=== PATIENT | male | born 1960 | race Caucasian/White ===

== ENCOUNTER 2024-06-17 18:01 | Inpatient (IN) | payer MEDICARE, SELFPAY ==
[2024-06-17] VITALS (13 sets, daily range): BP systolic 120–157; BP diastolic 67–96; BMI 29.5
--- NOTE | 2024-06-17 15:07 | ED.GENMED ---
History of Present Illness
General
Chief Complaint: Chest Pain
Source: patient
Time Seen by Provider: 06/17/24 15:07
History of Present Illness
History of Present Illness:
This 64-year-old male with a long history of coronary disease and tobacco abuse who reports chest pain. Came on suddenly just prior to arrival. The patient states he was really just at rest when this came on. The patient does admit that he is not
fully compliant with some of his medications. He does continue to smoke. Chest pain is substernal and severe. STEMI noted on triage EKG
Past History
Past History
ED Past Medical History: CAD, HTN, Hypercholesterolemia and GA
ED Past Surgical History: Cardiac (Coronary bypass)
Social History
Tobacco: Smoker
Phy Exam
Physical Exam
Physical Exam:
CONSTITUTIONAL Patient alert and oriented to person, place and time. Severe pain distress. Vital signs reviewed.
HEAD atraumatic, normocephalic.
EYES eyelids normal to inspection, Extraocular muscles intact, Conjunctiva normal, Sclera normal.
NECK normal range of motion, Trachea midline, no jugular venous distention.
RESPIRATORY CHEST No respiratory distress noted, Chest expansion equal, Bilateral breath sounds clear.
CARDIOVASCULAR regular rate and rhythm, Heart sounds normal.
ABDOMEN abdomen nontender, Bowel sounds normal. No distention.
BACK normal inspection, no obvious deformities
UPPER EXTREMITY range of motion normal, Motor strength normal, no cyanosis, no edema.
LOWER EXTREMITY range of motion normal, Motor strength normal, no cyanosis, no edema.
NEURO Speech normal, No focal motor deficits, Vernon coma scale 15, Memory normal, Cranial Nerves intact to screening exam.
SKIN skin warm, dry, and normal in color.
Scores
Heart Score for Chest Pain Patients
STEMI patient?: Yes
Course
Orders/Labs/Results
Orders:
Orders
06/17/24 14:45
ECG [Electrocardiogram (*1)] Urgent
Reason for Study: Chest Pain
06/17/24 14:46
EKG- Treatment ONCE
06/17/24 14:56
Morphine Sulfate 4 mg .ROUTE .STK-MED ONE
06/17/24 14:59
Morphine Sulfate 4 mg IV NOW STA
06/17/24 15:00
Type And Crossmatch [Type+Screen] Urgent
Cholesterol Lowering
At Your Request: Full Participation
Cholesterol Lowering: Sodium, 2 Gram
Complete Blood Count/With Diff Urgent
Comprehensive Metabolic Panel Urgent
Protime/PTT Urgent
Troponin I Urgent
06/17/24 15:20
Aspirin Chewable [Low Strength Aspirin] 324 mg .ROUTE .STK-MED ONE
Heparin 5,000 units .ROUTE .STK-MED ONE
Ticagrelor [Brilinta] 180 mg .ROUTE .STK-MED ONE
06/17/24 15:48
Admit Patient As Directed
Co-Sign Provider:
Level of Care: Inpatient admission
Assign to:: IVU
Physician / Group: KENDRICK/Cortez
Diagnosis: STEMI
Reason for Hospitalization: STEMI, VG-RCA PCI
Expected length of stay greater than two midnights?: Yes
ELOS- Estimated Length of Stay in days: 2
I certify the patient meets the requirements for IP care: Yes
Electrocardiogram (*1) Urgent
Reason for Study: Other
Other Reason for Exam: s/p intervention
Comment: kendrick
Code Status As Directed
Resuscitation Status: Full Code
CARDIAC REHAB CONSULT Routine
Co-Sign Provider:
Type of Cardiac Rehab Referral: Outpatient
Diagnosis: STEMI
Date of Diagnosis/Surgery: 06/17/24
Referring Provider: Lorne Toro
Acetaminophen [Tylenol] 650 mg PO Q4HPRN PRN
Morphine Sulfate 2 mg IV Q1HPRN PRN
Activity As Directed
Activity Level: Bedrest
Comment: refer to hemostasis device used for bedrest duration, then ambulate ad samantha
Business Systems Technician Procedure As Directed
Cardiac Cath Procedure: percutaneous coronary intervention
Head of Bed-Restrictions As Directed
Comment: may elevate head of bed 30 degrees
Intake/ Output As Directed
Frequency: Per unit guidelines
Notify MD As Directed
Notify physician if: immediately for chest pain or bleeding from access site(s)
Site Checks As Directed
Check access site for bleeding/hematoma: Yes
Comment: on arrival, Q15min x4, Q30min x2, Q1 hr x2, Q2 hr x2, Q4 hr or per
protocol
Vascular Checks As Directed
Location: distal to access site - pulse check
Frequency: Other
Comment: on arrival, Q15min x4, Q30min x2, Q1 hr x2, Q2 hr x2, Q4 hr or per protocol
Vital Signs As Directed
Frequency: Other
Additional Instructions:: on arrival, Q15min x4, Q30min x2, Q1 hr x2, Q2 hr x2, then Q4 hr or per unit
protocol
PRN Pain Medication Management As Directed
May give lesser potent ordered pain med per pt: Yes
preference::
Protocol:: Medication orders for pain may be administered in a
manner that supports deferring to patient preference
when the pt is:
- Requesting an ordered lesser potent pain medication.
Least to most potent pain medications are defined
as: acetaminophen < NSAID < tramadol < opioids
(morphine, oxycodone, hydromorphone).
- Requesting a lesser dose of the same medication IF
ORDERED.
- Requesting a less intrusive route of administration
if both routes are prescribed by the provider (PO <
IV).
DX Deep Vein Thrombosis Video Routine
06/17/24 16:00
0.9% Sodium Chloride 1000 ml [Nss] 1,000 ml IV PER PROTOCOL
Infusion rate in mL/kg/hr:: 1.5
Infusion rate in mL/hr:: 135
Duration of infusion (hours):: 5
0.9% Sodium Chloride 1000 ml [Nss] 1,000 ml IV PER PROTOCOL
Infusion rate in mL/kg/hr:: 1.5
Infusion rate in mL/hr:: 135
Duration of infusion (hours):: 5
06/17/24 16:02
Acetaminophen [Tylenol] 650 mg PO Q4HPRN PRN
Morphine Sulfate 2 mg IV Q1HPRN PRN
06/17/24 16:09
HYDROmorphone [Dilaudid] 1 mg .ROUTE .STK-MED ONE
06/17/24 16:51
Case Management Consult ONCE
Case Management Consult: Other
Comment: brilinta cost
06/17/24 17:25
Femoral Artery Hemostasis Method As Directed
Procedure performed:: Percutaneous Coronary Int
Type of femoral hemostasis method used:: Internal Closure Device
Duration of bedrest (hours):: 3
Call provider if:: hematoma present after hemostasis achieved
06/17/24 17:29
Furosemide [Lasix] 40 mg .ROUTE .STK-MED ONE
06/17/24 17:30
Nitroglycerin 100 mg/250 ml [Nitroglycerin Premix] 100 mg in 250 ml IV PER PROTOCOL
Currently infusing. Continue current dose and titrate:: Yes
Titrate to keep:: SBP < 160 mmHg
Titrate to keep other:: chest pain free
Titrate by mcg/min:: 5 mcg/min, may increase by 10 mcg/min if dose > 20 mcg/min
Frequency of titrations (minutes):: every 3-5 minutes
Maximum dose in mcg/min:: 200
Begin to taper infusion when:: Remained at goal for 2hrs
Taper by mcg/min:: 5 mcg/min
Frequency of taper (minutes) if patient maintains goal:: 30
Taper to off?: Yes
If infusion off & no longer maintaining goal:: Contact Provider
06/17/24 18:00
Atorvastatin [Lipitor] 80 mg PO QPM
Atorvastatin [Lipitor] 80 mg PO QPM
Nicotine [Nicoderm Transdermal] 21 mg TRANSDERM DAILY
06/17/24 18:30
Heparin 16352 Units/250 ml 25,000 units in 250 ml IV PER PROTOCOL
Weight to be used for heparin protocol in kilograms (kg):: 90.7
Protocol:: Cardiac Tx/Acute Coronary
PTT Goal Range to be used:: PTT 73 to 111 seconds
Order type:: Initial
INITIAL Infusion Dose (UNITS/KG/hr) & then follow protocol:: 15 units/kg/hr
Infusion Dose in UNITS/hr & then follow protocol (UNITS/hr):: 1,350
INFUSION RATE in mL/hr & then follow protocol (mL/hr):: 13.5
PTT less than or equal to 64 seconds:: Increase rate by 200 units/hr (+ 2 mL/hr)
PTT 64.1 to 72.9 seconds:: Increase rate by 100 units/hr (+ 1 mL/hr)
PTT 73 to 111 seconds:: Target Range. No change in rate.
PTT 111.1 to 130.9 seconds:: Decrease rate by 100 units/hr (- 1 mL/hr)
PTT 131 to 199.9 seconds:: HOLD for 1 hr. Then decrease rate by 200 units/hr (- 2 mL/hr)
PTT greater than or equal to 200 seconds:: HOLD for 2 hrs & Notify Provider. Then decrease by 200 units/hr (-
2 mL/hr)
Lab follow-up:: Each change, PTT q6h until 2 consecutive are therapeutic. Then PTT
daily.
06/17/24 21:04
ABO2 Urgent
BBK Wristband Number:
Associate notified that ABO2 has been ordered: [id number]
Date: 06/17/24
Time: 15:08
Pediatric Oncology Nurse ID: [id number]
Troponin I Q6H
06/18/24 04:14
Basic Metabolic Panel IN AM
Cardiovascular Evaluation IN AM
Magnesium IN AM
06/18/24 04:15
Complete Blood Count/No Diff IN AM
Glycohemoglobin (HgbA1c) IN AM
Troponin I Q6H
06/18/24 06:00
Echo 2D MMode Color/Doppler IN AM
Reason for Study: STEMI
Comment: toro
Electrocardiogram (*1) IN AM
Reason for Study: Other
Other Reason for Exam: s/p intervention
Comment: cbc
06/18/24 08:00
Aspirin Chewable [Low Strength Aspirin] 81 mg PO DAILY
Aspirin Chewable [Low Strength Aspirin] 81 mg PO DAILY
Metoprolol Xl [Toprol Xl] 12.5 mg PO DAILY
Ticagrelor [Brilinta] 90 mg PO BID
Ticagrelor [Brilinta] 90 mg PO BID
06/18/24 08:37
Troponin I Q6H
06/18/24 18:00
Enoxaparin Sodium [Lovenox] 40 mg SC QPM
Enoxaparin Sodium [Lovenox] 40 mg SC QPM
06/19/24 02:49
Basic Metabolic Panel IN AM
Complete Blood Count/No Diff IN AM
06/19/24 06:00
Electrocardiogram (*1) IN AM
Reason for Study: Other
Other Reason for Exam: s/p intervention
Comment: cbc
Abnormal Lab Results
06/17/24 06/17/24 06/17/24
15:00 15:35 15:50
WBC 18.4 H 10^3/uL
(4.8-10.8)
Hgb 18.6 H g/dL
(13.0-18.0)
Hct 55.3 H %
(39.0-52.0)
Abs Immat Gran (auto) 0.1 H 10^3/uL
(0-0.05)
Absolute Neuts (auto) 15.8 H 10^3/uL
(1.4-6.5)
Absolute Monos (auto) 0.8 H 10^3/uL
(0.1-0.6)
Neutrophils % 85.8 H %
(42.2-75.2)
Lymphocytes % 7.9 L %
(20.5-51.1)
BUN 21 H mg/dl
(9-20)
Glucose 138 H mg/dl
(70-99)
Troponin I 0.099 H* ng/ml
POC ACT Low Range 268 H Seconds > 397 H Seconds
(116155) ([id number])
06/17/24 06/17/24
16:15 16:47
WBC
Hgb
Hct
Abs Immat Gran (auto)
Absolute Neuts (auto)
Absolute Monos (auto)
Neutrophils %
Lymphocytes %
BUN
Glucose
Troponin I
POC ACT Low Range 377 H Seconds > 397 H Seconds
(116155) (116155)
06/17/24 15:00
06/17/24 15:00
Vital Signs
Initial and Last Documented VS:
Initial Vital Signs
Pulse Pulse Ox
90 93
06/17/24 18:00 06/17/24 18:00
Last Documented Vital Signs
Temp Pulse Resp BP Pulse Ox
97.5 F 73 18 124/84 97
06/19/24 11:29 06/19/24 12:00 06/19/24 11:29 06/19/24 11:30 06/19/24 11:29
MDM/Problems Addressed
MDM/Problems Addressed:
Acute ST elevation GA, acute uncontrolled hypertension
*Pulse Oximetry
Patient hypoxic: no
*EKG
Interpreted by ED Provider?: Yes
Interpretation: abnormal
Rate: normal
Rhythm: sinus
Ischemia: ST elevation
*Gravity Meter Operator Interpretation
Rate: normal
Interpretation: normal
Rhythm: sinus
*Critical Care Note
Total Time (30-74mins, 75-104mins- exclusive of procedures): 35 minutes
Data Reviewed
Source: patient
Further Testing Considered But Not Given:
Considered urgent chest x-ray with patient taken to cardiac catheterization lab
Patient Management
Discussion with other providers: Sulphate Tester (Case discussed with Dr. Lerner interventional cardiology)
Escalation/DeEscalation of care consider admission/obs:
Acute STEMI. 64-year-old male with known CAD. Admits to be noncompliant with meds and continues to smoke. Emergently to cardiac catheterization lab
ED Attending Note
-
Portions of this chart may have been created with voice recognition software.� Occasional wrong word or��sound alike� substitutions may have occurred due to the inherent limitations of voice recognition software.
Discharge Plan
Departure
Patient Disposition: Admit
Date of Disposition: 06/17/24
Time of Disposition: 15:07
Admit to: cleaning laborer
Presentation/result/management discussed w/ accepting MD/DO: Cortez
Discharge Problem:
STEMI (ST elevation myocardial infarction)
Interventions
Interventions:
*Nursing Disposition Last Done: 06/17/24 15:24
Discharge Date and Time
Discharge Date/Time: 06/17/24 15:24
[2024-06-17 15:12] LABS: % Basophils 0.4 % (0-2); % Eosinophils 0.8 % (0-6); % Immature Granulocytes 0.5 % (0-0.5); % Lymphocytes 7.9 % (20.5-51.1); % Monocytes 4.6 % (1.7-9.3); % Neutrophils 85.8 % (42.2-75.2); Absolute Basophils 0.1 10^3/uL (0-0.2); Absolute Eosinophils 0.1 10^3/uL (0-0.7); Absolute Immature Granulocytes 0.1 10^3/uL (0-0.05); Absolute Lymphocytes 1.5 10^3/uL (1.2-3.4); Absolute Monocytes 0.8 10^3/uL (0.1-0.6); Absolute Neutrophils 15.8 10^3/uL (1.4-6.5); Hematocrit 55.3 % (39.0-52.0); Hemoglobin 18.6 g/dL (13.0-18.0); Mean Corp Hgb Conc. 33.6 g/dL (33.0-37.0); Mean Corpuscular Hgb 30.6 pg (27.0-31.0); Mean Platelet Volume 10.1 fL (7.4-10.4); Nucleated Red Blood Cells % 0 % (-); Platelet Count 254 10^3/uL (130-400); Red Blood Cell Count 6.08 10^6/uL (4.70-6.10); Red Cell Dist. Width 13.4 % (11.5-14.5); White Blood Cell Count 18.4 10^3/uL (4.8-10.8)
--- NOTE | 2024-06-17 15:19 | HPS.HSE ---
Addendum entered and electronically signed by SRINIVASA Khan 06/18/24 08:30:
Pt not taking any medications, intermittent aspirin use only.
Original Note:
Family Physician
-
Family Physician: None
Chief Complaint
-
chest pain
History of Present Illness
64 y/o white male, PMH sig for CABG x4 (2011 @[facility]), NSTEMI 07/20/2023 with possibly 3 stents placed (one in the [facility] LC[facility], unclear if it was done at [facility]?), FH CAD, +35pyh tobacco abuse and continues to smoke 5-6
cig/daily, denies ETOH, denies any allergies. Currently employed, lives with girlfriend, Isabel. He is non compliant with medications, states he takes only aspirin daily, and has not followed up with any doctors since his [place].
New onset acute SSCP 10/10 starting approx 1 hour prior to arrival. Drove himself to ER, initial EKG with inferior ST elevations with deep anterolateral downsloping TWI. Given 180mg ticagrelor, aspirin 3234mg, and heparin 5000u, as well as 4mg MSO4.
Currently pain is 5/10, states it is similar to CP from NSTEMI last year. BP elevated on arrival 169/85, currently 187/95. Initial Trop 0.09. Glucose 138. Brought emergently to laborer/grade check.
IMPRESSION:
Acute Inferior STEMI
CAD, prior CABG x 4 (2011)
DEL CASTILLO-LAD, VG-RCA, Seq [id number]
NSTEMI (07/20/2023)
patent DEL CASTILLO-LAD and VG-RCA, occluded VM-OM1, s/p PCI w/3 CHINTAN to [facility] LCx (at [facility])
Non compliant with medications/followup
Tobacco abuse
HTN
Elevated glucose
PLAN:
CAD/STEMI
Emergent LHC
Plan pending cath results
DAPT w/asa, ticagrelor- CM to check cost
Trend troponin to peak
Monitor on tele/IVU
New start BB, ACEI
check lipid profile in am and start high intensity statin therapy
echo in AM
cardiac rehab
Followup at [facility]
HTN- new start BB, ACEI post cath
continue nitro gtt for now for BP/CP management
monitor trends
Elevated glucose- check HgbA1C in AM
Tobacco abuse- must stop, cessation discussed
nicoderm patch
Medical History
Past Medical History
Past Medical History: Reports CAD (NSTEMI 07/20/23), HTN and Hypercholesterolemia
Past Surgical History: Reports Cardiac (CABG x4 (2012))
Social History
Tobacco: Smoker (35pyh, still smokes 5-6 cigarettes/daily)
Alcohol: None
Drug: None
Personal: Single
Living: With Roomate (girlfriend)
Employment: Employed
Family History
Family History: CAD (Father- also CVA)
Allergies / Home Medications
Allergies reflects when Allergies were last updated in [employer].
Home Medications with original date entered in [employer]
Allergy/Medication List:
Allergies
Allergy/AdvReac Type Severity Reaction Status Date / Time
No Known Allergies Allergy Verified 06/17/24 14:52
Review of Systems
-
History Source: Patient
A 12 point ROS was completed and negative except as noted: Yes
Cardiac: Reports Chest Pain (5/10 mid sternal chest pain)
Physical Exam
Vital Signs
172/99- 74 NSR- 13- 98% O2 2LNC
Physical Exam
General: Well Developed and Other (PE deferred d/t urgent nature of cath)
Laboratory Results
-
06/17/24 15:00
06/17/24 15:00
PT 13.0 Sec (11.4-14.6) 06/17/24 15:00
INR 0.95 06/17/24 15:00
APTT 28.0 Sec (23.4-35.0) 06/17/24 15:00
Data Reviewed
-
Medical Tests (Nuc Med, Echo, EKG etc): Image Personally Visualized and interpreted, Report Reviewed by me and Discussed with Physician
Lab Data: Labs Reviewed by me
Impression/Plan
-
64 y/o white male, PMH sig for CABG x4 (2011 @[facility]), NSTEMI 07/20/2023 with possibly 3 stents placed (one in the [facility] LCx, [facility] FH CAD, +35pyh tobacco abuse and continues to smoke 5-6
cig/daily, denies ETOH, denies any allergies. Currently employed, lives with girlfriend, Isabel. He is non compliant with medications, states he takes only aspirin daily, and has not followed up with any doctors since his [place].
New onset acute SSCP 10/10 starting approx 1 hour prior to arrival. Drove himself to ER, initial EKG with inferior ST elevations with deep anterolateral downsloping TWI. Given 180mg ticagrelor, aspirin 3234mg, and heparin 5000u, as well as 4mg MSO4.
Currently pain is 5/10, states it is similar to CP from NSTEMI last year. BP elevated on arrival 169/85, currently 187/95. Initial Trop 0.09. Glucose 138. Brought emergently to laborer/grade check.
IMPRESSION:
Acute Inferior STEMI
CAD, prior CABG x 4 (2011)
DEL CASTILLO-LAD, VG-RCA, Seq [id number]
NSTEMI (07/20/2023)
patent DEL CASTILLO-LAD and VG-RCA, occluded VM-OM1, s/p PCI w/3 CHINTAN to [facility]x (at [facility])
Non compliant with medications/followup
Tobacco abuse
HTN
Elevated glucose
PLAN:
CAD/STEMI
Emergent LHC
Plan pending cath results
DAPT w/asa, ticagrelor- CM to check cost
Trend troponin to peak
Monitor on tele/IVU
New start BB, ACEI
check lipid profile in am and start high intensity statin therapy
echo in AM
cardiac rehab
Followup at [facility]
HTN- new start BB, ACEI post cath
continue nitro gtt for now for BP/CP management
monitor trends
Elevated glucose- check HgbA1C in AM
Tobacco abuse- must stop, cessation discussed
nicoderm patch
[2024-06-17 15:20] LABS: INR 0.95
[2024-06-17 15:21] LABS: ALT (SGPT) 19 U/L (0-50); AST (SGOT) 23 U/L (17-59); Albumin 4.4 g/dl (3.5-5.0); Alkaline Phosphatase 70 U/L (38-126); Blood Urea Nitrogen 21 mg/dl (9-20); Calcium 9.2 mg/dl (8.4-10.2); Carbon Dioxide 27 mmol/L (22-30); Chloride 98 mmol/L (98-107); Glucose 138 mg/dl (70-99); Potassium 4.1 mmol/L (3.5-5.1); Sodium 135 mmol/L (135-145); Total Bilirubin 0.5 mg/dl (0.2-1.3); eGFR > 60.00
[2024-06-17 15:41] LABS: Troponin I 0.099 ng/ml
[2024-06-17 15:42] LABS: ACT-LR - POC 268 Seconds (116-155)
[2024-06-17 16:23] LABS: ACT-LR - POC 377 Seconds (116-155)
--- NOTE | 2024-06-17 17:40 | ITS.CL.ANGIO ---
Child Care Nurse - Angioplasty
Angioplasty
Procedure Report:
CARDIAC CATHETERIZATION REPORT
Date of Procedure: 06/17/2024
Referring: [facility] emergency room.
INDICATION: Inferior ST elevation myocardial infarction.
PROCEDURE:
1. Left heart catheterization.
2. Coronary angiography.
3. Bypass angiography.
4. Aspiration thrombectomy of the SVG to RCA.
5. Successful IVUS guided PCI of the distal SVG to RCA graft.
6. Successful PCI of the proximal and mid RPDA.
7. Successful IVUS guided PCI of the mid SVG to RCA graft.
8. Successful IVUS guided PCI to the proximal SVG to RCA graft.
A total of 135 minutes of procedural/moderate sedation was utilized. An independent medical secretary teacher was present to assist with and help manage the patient's level of consciousness and physiologic status.
ACCESS:
1. 6 [place] right common femoral artery using a modified Seldinger technique with a micropuncture kit under ultrasound guidance. Ultrasound image obtained.
CATHETERS:
1. 5 Mozambican JL 4.
2. 5 [place]ican JR4.
3. 5 [place]ican CRUZ.
4. 6 [place]ambican multipurpose guiding catheter.
HEMODYNAMIC DATA
Weight (kg): 90.7
AO (s/d/x, mmHg): 175/100/133
LV (s/x mmHg): 177/26 (A wave to 44 mmHg)
LEFT VENTRICULOGRAPHY: Not performed.
CORONARY ANGIOGRAPHY
Dominance: Right.
Left Main: Normal size, bifurcating vessel. There is no coronary artery disease.
LAD: Normal size vessel giving rise to 1 significant diagonal. The vessel is chronically totally occluded in its midportion immediately after the origin of the diagonal. The mid and distal LAD is supplied by patent DEL CASTILLO graft.
Ramus: Congenitally absent.
Circumflex: Normal size, nondominant vessel giving rise to 2 obtuse marginals and a left posterolateral branch. The vessel is acutely angled off of the left main. There is a 30% lesion in the proximal vessel. The mid circumflex is chronically
totally occluded immediately after the origin of OM1. The LPDA and OM 2 fill via left to left epicardial collateral from the distal OM1.
RCA: Normal size, dominant vessel. The vessel is chronically totally occluded at its origin. The distal RCA is supplied by a saphenous vein graft. There is a hazy, 70% lesion in the distal RCA leading into the origin of the RPDA. There are
tandem 80-90% lesions in the mid RPDA.
BYPASS GRAFT ANGIOGRAPHY
DEL CASTILLO to LAD: Normal size graft with end-to-side anastomosis to the mid LAD. There is no evidence of stenosis or graft degeneration.
LRA to OM1: Chronically totally occluded at its origin.
SVG to D1: Chronically totally occluded at its origin.
SVG to RCA: Acutely occluded in its proximal margin, though the culprit lesion appears to be a 90% distal SVG lesion, immediately proximal to the anastomosis with the distal RCA. There is a hazy lesion in the proximal margin. There is a
thrombotic, 70% lesion in the mid graft.
INTERVENTION(S)
1. Aspiration thrombectomy of the SVG to distal RCA with removal of considerable clot burden, though leading to embolization of thrombus into the RPDA.
2. Successful PCI of the culprit, 90% distal SVG lesion (Xience Skypoint 3.5 x 28 CHINTAN, postdilated with a 4.0 NC balloon throughout and a 5.0 NC balloon in the proximal margin) with reduction in stenosis to 0%, restoring GEORGE-3 flow.
2. Successful PCI of the tandem 80-90% mid RPDA lesions (Xience Skypoint 2.25 x 38 CHINTAN, postdilated with a 2.25 NC balloon throughout) with reduction in both stenoses to 0%, maintaining GEORGE-3 flow.
3. Successful PCI of the hazy, 70% distal RCA into RPDA lesion (Xience Skypoint 2.5 x 18 CHINTAN, postdilated with a 2.5 NC balloon throughout and a 3.0 NC balloon in the proximal margin) with reduction in stenosis to 0%, maintaining GEORGE-3 flow.
4. Several rounds of intravascular ultrasound.
5. Successful PCI of the thrombotic, 70% mid graft lesion (Xience Skypoint 5.0 x 28 CHINTAN, postdilated with a 5.0 NC balloon) with reduction in stenosis to 0%, maintaining GEORGE-3 flow.
6. Successful PCI of the hazy, proximal graft lesion (Xience Skypoint 4.0 x 12 CHINTAN, postdilated with a 5.0 NC balloon) with reduction in stenosis to 0%, maintaining GEORGE-3 flow.
Narrative:
The decision was made to proceed with percutaneous coronary intervention. The patient required multiple doses of narcotics and a nitroglycerin drip to achieve adequate pain relief. The diagnostic catheter was removed over a wire and a 6Fr
multipurpose guiding catheter was advanced to the aortic root and seated in the ostium of the SVG to distal RCA. Additional heparin was given and a Power Turn Flex wire was advanced into the RPDA.
Given the extensive clot burden revealed after successful wire placement, the decision was made to perform aspiration thrombectomy. An AMISHA aspiration thrombectomy catheter was prepped on the back table and advanced over the power turn flex wire
and into the SVG graft. Aspiration was performed with movement throughout the entire SVG. The AMISHA catheter was withdrawn and its contents to flushed through the basket. This revealed a large piece of thrombus.
Repeat angiography was performed which showed some improvement in the SVG thrombus burden but embolization of thrombus into the RPDA which was now occluded.
The acutely occluded proximal RPDA as well as a thrombotic, 90% distal SVG graft lesion were predilated with a 2.0 x 12 semi-compliant balloon to 12 brionna. Again, this resulted in some improvement in the vein graft flow with persistent sluggish flow
in the RPDA. Given the thrombotic nature of the vein graft lesion, the decision was made to treat this lesion and to avoid further downstream thrombus.
The semi-compliant balloon was removed and a Xience Skypoint 3.5 x 28 drug-eluting stent was advanced into the thrombotic, 90% distal SVG lesion. The stent was deployed at 12 atmospheres. The stent balloon was removed. Subsequent angiography
revealed a significant improvement in the GEORGE flow throughout the RPDA as well as the large RPL. This also revealed tandem 80-90% lesions in the mid RPDA as well as a hazy, 70% lesion in the distal RCA leading into the RPDA. The decision was made
to post dilate the distal SVG stent, advance the GuideLiner and intervene on these RPDA lesions.
A 6 Mozambican guide liner and A 3.75 x 20 noncompliant balloon were advanced into the stent and the stent was postdilated to 12 atmospheres. After post dilation, the GuideLiner was advanced into the stented segment to allow for better visualization
with less contrast use and more support. The 3.75 x 20 noncompliant balloon was withdrawn. At this time, we attempted to protect the RPL by advancing a BMW wire. Unfortunately, the BMW wire would not track into the RPL but did enter the RPDA with
a true course, out into the distal vessel. Given the superior course of the BMW wire, the power turn flex wire was withdrawn, demonstrating severe malformation of the distal tip. This wire was discarded.
The tandem 80-90% mid RPDA lesions were predilated with a 2.0 x 12 semi-compliant balloon to 12 brionna. The semi-compliant balloon was removed and a Xience Skypoint 2.25 x 38 drug-eluting stent was advanced. The stent was deployed at 12 atmospheres.
The stent balloon was removed. A 2.25 x 12 noncompliant balloon was advanced into the stent and the stent was postdilated to 18 atmospheres.
The noncompliant balloon was removed and we turned our attention to the distal RCA leading into the RPDA. A Xience Skypoint 2.5 x 18 CHINTAN was advanced into the distal RCA/proximal RPDA. Meticulous care was taken while positioning the stent,
ensuring that the entire lesion was covered. The stent was deployed at 12 brionna. The stent balloon was withdrawn and a 2.5 x 12 NC balloon was advanced. The entire stent length was postdilated to 12 brionna. The NC balloon was removed and a 3.0 x 8 NC
balloon was advanced. The proximal margin of the stent was postdilated to 14 brionna. The noncompliant balloon was withdrawn.
Angiography showed an excellent result within the RPDA and distal RCA. Some haziness had formed along the inner stent edge of the distal SVG stent. The decision was made to perform intracoronary imaging. An IVUS catheter was advanced through the
guiding catheter and into the ostium of the artery. Ring down was performed once the imaging crystal was no longer inside of the guiding catheter. The IVUS catheter was advanced into the distal RCA, with some difficulty. Intravascular ultrasound was
performed in a retrograde fashion using a slow pullback. Intracoronary imaging demonstrated good stent expansion of the distal SVG stent with some mall apposition, particularly in the proximal margin where the SVG tends to flare. IVUS also revealed
the severity of the mid SVG and proximal SVG lesions, much worse than appreciated on angiography. This also demonstrated acute thrombus in both lesions. Stent measurements for intervention were obtained.
The decision was made to treat both proximal and mid SVG lesions. First, a 4.0 x 8 NC balloon was advanced. The entire distal SVG stent length was dilated to 12 brionna with the proximal margin being postdilated to 14 brionna. We then turned our
attention to the thrombotic, mid SVG graft lesion. A Xience Skypoint 5.0 x 28 drug-eluting stent was advanced. The stent was deployed at 12 atmospheres. The stent balloon was removed. A 5.0 x 15 noncompliant balloon was advanced. The balloon
passed into the distal SVG stent. We took this opportunity to post dilate the proximal margin of the distal SVG stent to 12 brionna. The balloon was then pulled back into the mid SVG stent and the entire length was postdilated to 12 brionna. Angiography
was performed in orthogonal views, confirming good stent expansion and an excellent angiographic result.
IVUS was repeated, demonstrating good expansion with complete apposition throughout the entire stented segments. This also allowed us to reevaluate the proximal SVG graft lesion again, confirming that it appeared thrombotic and active.
We then turned our attention to the proximal SVG to RCA graft lesion. The decision was made to direct stent and a 4.0 x 12 drug-eluting stent was advanced. The stent was deployed at 12 atmospheres. The stent balloon was removed. A 4.5 x 8
noncompliant balloon was advanced into the stent and the stent was postdilated to 14 atmospheres. Final IVUS was performed, demonstrating good stent expansion with some modest mall apposition on the margins. The decision was made to postdilated
more aggressively. A 5.0 x 12 NC balloon was advanced and the stented segment was postdilated to 12 brionna. The noncompliant balloon was removed.
Angiography was performed in orthogonal views, confirming good stent expansion and an excellent angiographic result. The coronary wire was withdrawn and the guide was disengaged from the artery. The catheter was removed over a standard J-wire. The
6 [place] femoral sheath was removed and hemostasis was obtained with a 6 Mozambican Angio-Seal. The patient was given furosemide 40 mg IV given his severely elevated filling pressures.
Closure Device: 6 [place] Angio-Seal.
Radiation (mGy): 3653.54
DAP (cm2.Gy): To 42.80
Fluoroscopy time (minutes): 36.0
CONCLUSIONS
1. Right dominant circulation with a chronically totally occluded mid LAD, a chronically totally occluded ostial RCA, status post bypass (patent DEL CASTILLO to LAD, occluded LRA to OM1, occluded SVG to D1, acutely thrombotic SVG to distal RCA) with
residual [place] distal RCA and RPDA disease.
2. Successful IVUS guided PCI to the mid RPDA (Xience Skypoint 2.25 x 38 CHINTAN, postdilated with 2.25 NC balloon), the distal RCA into RPDA (Xience felix point 2.5 x 18 CHINTAN, postdilated with a 2.5 NC balloon throughout and a 3.0 NC balloon in the
proximal margin), the distal SVG (Xience Skypoint 3.5 x 28 CHINTAN, postdilated with a 4.0 NC balloon throughout and a 5.0 NC balloon in the proximal margin), the mid SVG (Xience Skypoint 5.0 x 28 CHINTAN, postdilated with 5.0 NC balloon) and the proximal
SVG (4.0 x 12 CHINTAN, postdilated with a 5.0 NC balloon) with reduction in all stenoses to 0%, restoring GEORGE-3 flow.
3. Successful IVUS evaluation of the SVG stents, ensuring excellent stent expansion and apposition.
4. Severely elevated filling pressures (LVEDP = 26 mmHg at 90.7 kg) with evidence of severe diastolic dysfunction (A wave to 44 mmHg).
5. Medication noncompliance.
RECOMMENDATIONS:
1. Expectant management after cardiac catheterization via right common femoral approach.
2. Limited weight bearing for one week.
3. Dual antiplatelet therapy with aspirin and ticagrelor for at least 12 months, possibly lifelong given his stent burden.
4. Aggressive secondary prevention with high-dose, high potency statin. Goal LDL <55.
5. Guideline directed medical therapy as hemodynamics will tolerate.
6. Furosemide 40 mg IV given in the Child Care Nurse.
7. Echocardiogram ordered and pending.
8. Referral to cardiac rehab.
Copy to: Lorne Toro D.O.
Lorne Toro, DO, FACC, FACP
--- NOTE | 2024-06-17 18:31 | PTCARENOTE ---
received pt from label printer. pt is sr on the monitor, hr in the 80s, vss. pt c/o cp 10/12, 'better than what it was.' right groin dressing is cdi. pt educated on plan of care and pt verbalized understanding. nitro gtt running per protocol, see
documentation. call turcios within reach.
[2024-06-17] MEDS: HEPARIN 25000 UNITS/250 ML IV (19:18)
[2024-06-17] MEDS: LIPITOR 80 MG PO (19:22)
[2024-06-18] VITALS (13 sets, daily range): BP systolic 112–168; BP diastolic 73–98
--- NOTE | 2024-06-18 01:00 | PTCARENOTE ---
Pt c/o when falling asleep being jolted awake and feeling like he is gasping for breath. O2 2L NC placed on pt.
[2024-06-18 01:49] LABS: APTT 53.8 Sec (23.4-35.0)
--- NOTE | 2024-06-18 02:20 | PTCARENOTE ---
Pt had 10 beat run v-tach. Pt was asymptomatic. See strip in chart.
[2024-06-18 04:28] LABS: Hematocrit 53.1 % (39.0-52.0); Hemoglobin 18.6 g/dL (13.0-18.0); Mean Corpuscular Hgb 31.1 pg (27.0-31.0); Mean Corpuscular Volume 88.8 fL (80.0-94.0); Mean Platelet Volume 9.8 fL (7.4-10.4); Platelet Count 241 10^3/uL (130-400); Red Blood Cell Count 5.98 10^6/uL (4.70-6.10); Red Cell Dist. Width 13.4 % (11.5-14.5); White Blood Cell Count 17.3 10^3/uL (4.8-10.8)
[2024-06-18 04:52] LABS: Blood Urea Nitrogen 16 mg/dl (9-20); Calcium 8.6 mg/dl (8.4-10.2); Carbon Dioxide 28 mmol/L (22-30); Chloride 97 mmol/L (98-107); Estimated Creatinine Clearance 84 ml/min; Glucose 111 mg/dl (70-99); HDL Cholesterol 40 mg/dl; LDL Cholesterol, Calculated 141 mg/dl; Magnesium 1.7 mg/dl (1.6-2.3); Potassium 4.3 mmol/L (3.5-5.1); Sodium 135 mmol/L (135-145); Total Cholesterol 201 mg/dl (50-199); Triglyceride 104 mg/dl (10-149); Very Low Density Lipoprotein 20 mg/dl (0-30); eGFR > 60.00
[2024-06-18] MEDS: TUMS CHEWABLE TABLET 400 MG PO (07:42)
--- NOTE | 2024-06-18 07:56 | W.PN.CD ---
Today's Communication / Plan
-
Echocardiogram pending.
Maintain heparin gtt for 48 hours.
DAPT, possibly lifelong.
Change metoprolol to carvedilol 12.5 mg BID.
Impression / Plan
-
Impression/Plan: 64 y/o male with multiple medical co-morbidities including CAD s/p CABG in 2011, PCI to LCx on 07/20/2023 and medication non-compliance admitted with inferior STEMI.
#STEMI
-Acute.
-S/P multiple interventions to an acutely occluded SVG to RCA:
-Xience Skypoint 2.25 x 38 CHINTAN to mRPDA.
-Xience Skypoint 2.5 x 18 CHINTAN to dRCA/pRPDA, post dilated with a 2.5 NCB throughout, 3.0 NCB proximally.
-Xience Skypoint 3.5 x 28 CHINTAN to dSVG, post dilated with a 4.0 NCB throughout, 5.0 NCB proximally.
-Xience Skypoint 5.0 x 28 CHINTAN to mSVG, post dilated with a 5.0 NCB.
-Xience Skypoint 4.0 x 12 CHINTAN to pSVG, post dilated with a 5.0 NCB.
-DAPT with aspirin and ticagrelor for at least 12 months, likely lifelong given stent burden.
-Maintain heparin gtt for 48 hours given sub-acute haziness post PCI, in spite of aggressive post dilation.
-Continue atorvastatin, metoprolol.
-Echo pending. He received furosemide 40 mg IV for an LVEDP of 25 mmHg with diastolic dysfunction.
#CAD
-Chronic.
-Cath shows mLAD ELECTRIC REFRIGERATOR SERVICER, pRCA ELECTRIC REFRIGERATOR SERVICER, s/p prior CABG in 2011 (patent DEL CASTILLO to LAD, occluded LRA to OM1, occluded SVG to D1, acutely occluded SVG to dRCA).
-PCI as above.
-High dose, high potency statin.
-Check HbA1c.
#HLD
-Chronic, uncontrolled.
-Total cholesterol = 201, LDL = 141, HDL = 40, Triglycerides = 104.
-Start atorvastatin 80 mg daily.
-Goal LDL < 55.
#HTN
-BP's 140-150's.
-NSVT on monitor.
-Change metoprolol to carvedilol 12.5 mg BID for BP control and beta blockade.
#Medication non-compliance
-Chronic.
-I impressed upon him the importance of taking all of his medications as prescribed.
#PPx
-DVT/VTE ppx with heparin gtt.
-No role for PPI at the moment.
#Dispo
-IVU status.
-Full code.
Subjective/Interval History:
STEMI yesteday.
Extensive PCI of SVG to RCA and menominee RCA.
10 beat run of NSVT overnight.
DATA:
Cardiac Catheterization/PCI, 06/17/2023:
CONCLUSIONS
1. Right dominant circulation with a chronically totally occluded mid LAD, a chronically totally occluded ostial RCA, status post bypass (patent DEL CASTILLO to LAD, occluded LRA to OM1, occluded SVG to D1, acutely thrombotic SVG to distal RCA) with
residual [place] distal RCA and RPDA disease.
2. Successful IVUS guided PCI to the mid RPDA (Xience Skypoint 2.25 x 38 CHINTAN, postdilated with 2.25 NC balloon), the distal RCA into RPDA (Xience felix point 2.5 x 18 CHINTAN, postdilated with a 2.5 NC balloon throughout and a 3.0 NC balloon in the
proximal margin), the distal SVG (Xience Skypoint 3.5 x 28 CHINTAN, postdilated with a 4.0 NC balloon throughout and a 5.0 NC balloon in the proximal margin), the mid SVG (Xience Skypoint 5.0 x 28 CHINTAN, postdilated with 5.0 NC balloon) and the proximal
SVG (4.0 x 12 CHINTAN, postdilated with a 5.0 NC balloon) with reduction in all stenoses to 0%, restoring GEORGE-3 flow.
3. Successful IVUS evaluation of the SVG stents, ensuring excellent stent expansion and apposition.
4. Severely elevated filling pressures (LVEDP = 26 mmHg at 90.7 kg) with evidence of severe diastolic dysfunction (A wave to 44 mmHg).
5. Medication noncompliance.
Physical Exam
Vital Signs/Labs
Vital Signs
Temp Pulse Resp BP Pulse Ox
36.4 C 92 20 148/90 96
06/18/24 04:00 06/18/24 06:27 06/18/24 04:00 06/18/24 06:27 06/18/24 04:00
06/16/24 06/17/24 06/18/24
11:59 11:59 11:59
Actual Weight 90.7 kg
06/18/24 04:15
06/18/24 04:14
PT 13.0 Sec (11.4-14.6) 06/17/24 15:00
INR 0.95 06/17/24 15:00
APTT 53.8 Sec (23.4-35.0) H 06/18/24 01:29
Magnesium 1.7 mg/dl (1.6-2.3) 06/18/24 04:14
Triglycerides 104 mg/dl (10-149) 06/18/24 04:14
LDL Cholesterol, Calc 141 mg/dl 06/18/24 04:14
VLDL Cholesterol, Calc 20 mg/dl (0-30) 06/18/24 04:14
HDL Cholesterol 40 mg/dl 06/18/24 04:14
LAB Results
06/17/24 06/17/24 06/18/24
15:00 21:04 04:15
Troponin I 0.099 H* 11.400 H* D 27.600 H* D
Physical Exam
Constitutional: No acute distress and Comfortable
EENT: Anicteric and Moist mucous membranes
Cardiovascular: Rhythm & rate is regular, Pedal edema is absent, JVD pressure is normal, S1S2 is normal and Murmur/rub/gallop absent
Respiratory: Respiratory effort normal, Lungs clear to auscul., Wheeze Absent, Crackles Absent and Rhonchi Absent
GI: Soft, Distention absent, Flat, Non tender and Normal bowel sounds
Neuro/Psych: AO x 3
Other: Cath Site (Right femoral access site is C/D/I.)
Data Reviewed
-
Date of Service: June 18, 2024
Medical Decision Making: Reviewed Test Results, Independent Historian Assessment and Test Interpretation
EKG: Tracing Personally Visualized and interpreted and Report Reviewed by me
Echo: Ordered by me
Medical Tests (PFT, Pathology etc): Image Personally Visualized and interpreted and Report Reviewed by me
Labs: Labs Reviewed by me
[2024-06-18 08:15] LABS: ACT-LR - POC > 397 Seconds (116-155)
[2024-06-18 08:15] LABS: ACT-LR - POC > 397 Seconds (116-155)
[2024-06-18] MEDS: BRILINTA 90 MG PO ×2 (08:20→19:31)
[2024-06-18] MEDS: LOW STRENGTH ASPIRIN 81 MG PO (08:20)
[2024-06-18] MEDS: TOPROL XL 12.5 MG PO (08:20)
[2024-06-18] MEDS: FLUSH (NSS) 1 FLUSH IV (08:21)
[2024-06-18] MEDS: COREG 12.5 MG PO ×2 (08:49→19:31)
[2024-06-18 09:06] LABS: APTT 61.1 Sec (23.4-35.0)
--- NOTE | 2024-06-18 09:26 | PTCARENOTE ---
Received patient this morning resting in bed. IV heparin infusing at 1550 units/hr. Right groin dressing is dry and intact. Patient complaining of indigestion and requested tums which were given with relief. Patient seen by Dr. Lerner to remains on
IV heparin x 48 hours. PTT/troponin sent to the lab.
[2024-06-18 10:18] LABS: Glycohemoglobin (HgbA1c) 5.5 % (4.0-5.6)
--- NOTE | 2024-06-18 10:49 | CM ---
Chart reviewed. Patient is independent of ADLS, lives with his girlfriend in a [address], 2 MARK, 0 DME. Plan is for the patient to return home. CM to follow
--- NOTE | 2024-06-18 11:01 | CM ---
Patient is independent of ADLS, lives with his girlfriend in a [address], 2 MARK, 0 DME. Plan is for the patient to return home. CM to follow
--- NOTE | 2024-06-18 11:04 | CM ---
Pricing on Brilinta. Patient told me he got into an argument with the payment plan for his [facility] [facility] Plan and they dropped him at the end of the year. [facility].
[2024-06-18] MEDS: HEPARIN 25000 UNITS/250 ML IV (12:15)
--- NOTE | 2024-06-18 15:24 | CM ---
priced meds at [facility] rx- prasugrel- $ 18.08/mo, atorvastatin $ 8.40/mo, carvedilol retail valdivia is $ 3.98/mo- pt is agreeable to the cost, Girlfriend was given the good rx coupons.
[2024-06-18 16:25] LABS: APTT 42.7 Sec (23.4-35.0)
--- NOTE | 2024-06-18 17:35 | PTCARENOTE ---
PTT not therapeutic and heparin increased to 1950 units/hr per protocol. Notified Mercy Foley NP of the patient's latest troponin and subtherapeutic PTT's. Heparin discontinued as ordered and will start lovenox bid as per cardiology. Patient updated.
--- NOTE | 2024-06-18 17:48 | W.PN.UPDATE ---
Update Note
Progress Note Update
Heparin protocol overnight and today- has remained subtherapeutic with multiple dose increases.
Discussed w/Dr. Toro. Will stop heparin and start lovenox 90mg q12h- starting 1 hour after heparin gtt stopped.
Pt has 90 day supply of the following meds at home- but is not taking them at all:
Losartan 25mg/daily
Toprol XL 25mg BID
Aspirin 81mg/daily
atorvastatin 40mg/daily
Will start losartan in AM. Already restarted aspirin and atorvastatin increased to 80mg.
On carvedilol 12.5mg BID- started today- will re-evaluate in AM.
Echo results pending.
[2024-06-18] MEDS: LIPITOR 80 MG PO (18:33)
[2024-06-18] MEDS: LOVENOX 90 MG SC (18:33)
--- NOTE | 2024-06-18 23:33 | PTCARENOTE ---
Patient ambulating self in room and in hallways without difficulty. Right groin dressing C/D/I w/ positive b/l DP pulses. Tele remains SR. Patient denies any pain or discomfort. Aware of POC, and can make needs known. Call turcios within reach.
[2024-06-19 02:44] VITALS: BP 114/73
[2024-06-19 03:28] LABS: Hematocrit 52.6 % (39.0-52.0); Hemoglobin 18.2 g/dL (13.0-18.0); Mean Corp Hgb Conc. 34.6 g/dL (33.0-37.0); Mean Corpuscular Hgb 30.8 pg (27.0-31.0); Mean Corpuscular Volume 89.2 fL (80.0-94.0); Platelet Count 238 10^3/uL (130-400); Red Cell Dist. Width 13.5 % (11.5-14.5)
[2024-06-19 03:42] LABS: Blood Urea Nitrogen 20 mg/dl (9-20); Calcium 8.5 mg/dl (8.4-10.2); Carbon Dioxide 27 mmol/L (22-30); Chloride 100 mmol/L (98-107); Estimated Creatinine Clearance 69 ml/min; Glucose 99 mg/dl (70-99); Potassium 4.4 mmol/L (3.5-5.1); Sodium 133 mmol/L (135-145); eGFR > 60.00
[2024-06-19] MEDS: LOVENOX 90 MG SC (05:55)
--- NOTE | 2024-06-19 07:53 | PTCARENOTE ---
Received patient this morning sitting at the side of the bed eating breakfast. Did not sleep well last night due to chronic back pain, unable to get comfortable in hospital bed. Inquiring about discharge, anxious to go home.
[2024-06-19 08:37] VITALS: BP 124/72
[2024-06-19] MEDS: COREG 12.5 MG PO (08:50)
[2024-06-19] MEDS: LOW STRENGTH ASPIRIN 81 MG PO (08:50)
[2024-06-19] MEDS: EFFIENT 60 MG PO (08:54)
[2024-06-19] MEDS: COZAAR 25 MG PO (08:54)
[2024-06-19] MEDS: FLUSH (NSS) 2 FLUSH IV (08:55)
--- NOTE | 2024-06-19 11:02 | W.PN.CD ---
Today's Communication / Plan
-
BP better controlled.
Converted from ticagrelor to prasugrel.
Tolerating GDMT + atorvastatin.
Discharge planning.
Impression / Plan
-
Impression/Plan: 64 y/o male with multiple medical co-morbidities including CAD s/p CABG in 2011, PCI to LCx on 07/20/2023 and medication non-compliance admitted with inferior STEMI.
#STEMI
-Acute.
-Troponin peaked at 33.1.
-S/P multiple interventions to an acutely occluded SVG to RCA:
-Xience Skypoint 2.25 x 38 CHINTAN to mRPDA.
-Xience Skypoint 2.5 x 18 CHINTAN to dRCA/pRPDA, post dilated with a 2.5 NCB throughout, 3.0 NCB proximally.
-Xience Skypoint 3.5 x 28 CHINTAN to dSVG, post dilated with a 4.0 NCB throughout, 5.0 NCB proximally.
-Xience Skypoint 5.0 x 28 CHINTAN to mSVG, post dilated with a 5.0 NCB.
-Xience Skypoint 4.0 x 12 CHINTAN to pSVG, post dilated with a 5.0 NCB.
-Continue aspirin indefinitely. Ticagrelor converted to prasugrel this morning due to prohibitive cost.
-Heparin transitioned to enoxaparin yesterday.
-Echo shows inferior/inferoseptal hypokinesis with preserved LVEF (55%).
-Continue atorvastatin, carvedilol 12.5 mg BID.
#CAD
-Chronic.
-Cath shows mLAD PSYCHIATRIC NURSE, pRCA PSYCHIATRIC NURSE, s/p prior CABG in 2011 (patent DEL CASTILLO to LAD, occluded LRA to OM1, occluded SVG to D1, acutely occluded SVG to dRCA).
-PCI as above.
-High dose, high potency statin.
-HbA1c = 5.5%.
#HLD
-Chronic, uncontrolled.
-Total cholesterol = 201, LDL = 141, HDL = 40, Triglycerides = 104.
-Start atorvastatin 80 mg daily.
-Goal LDL < 55.
#HTN
-BP's 140-150's.
-NSVT on monitor.
-Change metoprolol to carvedilol 12.5 mg BID for BP control and beta blockade.
#Medication non-compliance
-Chronic.
-I impressed upon him the importance of taking all of his medications as prescribed.
#PPx
-DVT/VTE ppx with enoxaparin and SCD's.
-No role for PPI at the moment.
#Dispo
-IVU status.
-Full code.
-Discharge planning.
Subjective/Interval History:
No acute events.
Patient converted from heparin gtt to enoxaparin yesterday.
Anxious to go home.
DATA:
Cardiac Catheterization/PCI, 06/17/2023:
CONCLUSIONS
1. Right dominant circulation with a chronically totally occluded mid LAD, a chronically totally occluded ostial RCA, status post bypass (patent DEL CASTILLO to LAD, occluded LRA to OM1, occluded SVG to D1, acutely thrombotic SVG to distal RCA) with
residual quinault distal RCA and RPDA disease.
2. Successful IVUS guided PCI to the mid RPDA (Xience Skypoint 2.25 x 38 CHINTAN, postdilated with 2.25 NC balloon), the distal RCA into RPDA (Xience felix point 2.5 x 18 CHINTAN, postdilated with a 2.5 NC balloon throughout and a 3.0 NC balloon in the
proximal margin), the distal SVG (Xience Skypoint 3.5 x 28 CHINTAN, postdilated with a 4.0 NC balloon throughout and a 5.0 NC balloon in the proximal margin), the mid SVG (Xience Skypoint 5.0 x 28 CHINTAN, postdilated with 5.0 NC balloon) and the proximal
SVG (4.0 x 12 CHINTAN, postdilated with a 5.0 NC balloon) with reduction in all stenoses to 0%, restoring GEORGE-3 flow.
3. Successful IVUS evaluation of the SVG stents, ensuring excellent stent expansion and apposition.
4. Severely elevated filling pressures (LVEDP = 26 mmHg at 90.7 kg) with evidence of severe diastolic dysfunction (A wave to 44 mmHg).
5. Medication noncompliance.
TTE, 06/18/2024:
CONCLUSIONS
Normal left ventricular chamber size with normal left ventricular wall
thickness and severe hypokinesis of the inferior and inferoseptal wall with
preserved systolic function. Left ventricular ejection fraction is 55% by
Briceño's method of discs. Diastolic function indeterminate.
Normal right ventricular size and function.
Normal atria.
No significant valve abnormalities.
No evidence of pulmonary hypertension.
No prior study available for comparison.
Physical Exam
Vital Signs/Labs
Vital Signs
Temp Pulse Resp BP Pulse Ox
36.8 C 83 18 124/72 96
06/19/24 08:35 06/19/24 08:37 06/19/24 08:35 06/19/24 08:37 06/19/24 08:35
06/17/24 06/18/24 06/19/24
11:59 11:59 11:59
Actual Weight 90.7 kg
06/19/24 02:49
06/19/24 02:49
PT 13.0 Sec (11.4-14.6) 06/17/24 15:00
INR 0.95 06/17/24 15:00
APTT Cancelled 06/18/24 22:50
Magnesium 1.7 mg/dl (1.6-2.3) 06/18/24 04:14
Triglycerides 104 mg/dl (10-149) 06/18/24 04:14
LDL Cholesterol, Calc 141 mg/dl 06/18/24 04:14
VLDL Cholesterol, Calc 20 mg/dl (0-30) 06/18/24 04:14
HDL Cholesterol 40 mg/dl 06/18/24 04:14
LAB Results
06/17/24 06/17/24 06/18/24
15:00 21:04 04:15
Troponin I 0.099 H* 11.400 H* D 27.600 H* D
06/18/24 06/18/24 06/19/24
08:37 15:50 02:49
Troponin I 33.100 H* 32.300 H* 19.600 H*
Physical Exam
Constitutional: No acute distress and Comfortable
EENT: Anicteric and Moist mucous membranes
Cardiovascular: Rhythm & rate is regular, Pedal edema is absent, JVD pressure is normal, S1S2 is normal and Murmur/rub/gallop absent
Respiratory: Respiratory effort normal, Lungs clear to auscul., Wheeze Absent, Crackles Absent and Rhonchi Absent
GI: Soft, Distention absent, Flat, Non tender and Normal bowel sounds
Neuro/Psych: AO x 3
Other: Cath Site (Right femoral access site is C/D/I.)
Data Reviewed
-
Date of Service: June 19, 2024
Medical Decision Making: Reviewed Test Results, Independent Historian Assessment and Test Interpretation
EKG: Tracing Personally Visualized and interpreted and Report Reviewed by me
Echo: Tracing Personally Visualized and interpreted and Report Reviewed by me
X-Ray/CT/US/MRI/NUC/PET: Image Personally Visualized and interpreted and Report Reviewed by me
Medical Tests (PFT, Pathology etc): Image Personally Visualized and interpreted and Report Reviewed by me
Labs: Labs Reviewed by me
Old Records: Reviewed
[2024-06-19 11:30] VITALS: BP 124/84
[2024-06-19 11:56] VITALS: BMI 29.7
--- NOTE | 2024-06-19 13:21 | W.DS.TRANS ---
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
-
Discharge Instructions:
Discharge Diagnosis/Procedures STEMI, s/p thrombectomy with angioplasty and
stent x3 to Vein Graft-Right Coronary artery,
and x2 to Posterior Descending artery
Diet Low Cholesterol
Activity No strenuous activity
Additional Activity No strenuous activity or heavy lifting or snow
shoveling until next Wednesday 06/28
Driving Restrictions No driving for 24 hours
Other Services Cardiac Rehab
Instructions:
Stand-Alone Forms: DC Instructions- Cath/EP Lab
Changes to Home Medications: Yes
Discharge Medications:
DC Medications w/original date entered in [facility]
atorvastatin 80 mg tablet 80 mg PO QPM #90 tabs 06/18/24
carvedilol 12.5 mg tablet 12.5 mg PO BID #180 tabs 06/18/24
nicotine 21 mg/24 hr daily transdermal patch 21 mg transdermal DAILY #28 ea 06/18/24
nitroglycerin 0.4 mg sublingual tablet 0.4 mg sublingual [id number] PRN chest pain #25 tabs 06/18/24
prasugrel HCl 10 mg tablet 10 mg PO DAILY #90 tabs 06/18/24
aspirin 81 mg chewable tablet 81 mg PO DAILY #1 tab 06/19/24
losartan 25 mg tablet 25 mg PO DAILY #90 tabs 06/19/24
Home Medication Changes
ALL MEDS ARE NEW
Pending Results: No
--- NOTE | 2024-06-19 15:03 | PTCARENOTE ---
Patient seen by Dr. Lerner and is ok for discharge home. Reviewed discharge instructions in detail including the importance of no longer smoking and being compliant with all of his meds. Reinforced activity restrictions, patient frequently joking
that he is a tough varun, again explained the severity of his Stemi and the multiple stents that were placed and need to let himself recover and follow instructions. Patient discharged home with his brother.
== END 2024-06-19 14:05 | disposition home or self-care (01) | DRG 321 ==
LOC: IVU 18:01
PROVIDERS: Nurse Practitioner; ADMITTING PHYSICIAN Internal Medicine Cardiovascular Disease; EMERGENCY PHYSICIAN Emergency Medicine
PROC: 027137Z Dilation of Coronary Artery, Two Arteries with Four or More Drug-eluting Intraluminal Devices, Percutaneous Approach (ICD-10-PCS; 2024-06-17)
PROC: 02C03ZZ Extirpation of Matter from Coronary Artery, One Artery, Percutaneous Approach (ICD-10-PCS; 2024-06-17)
PROC: 4A023N7 Measurement of Cardiac Sampling and Pressure, Left Heart, Percutaneous Approach (ICD-10-PCS; 2024-06-17)
PROC: B240ZZ3 Ultrasonography of Single Coronary Artery, Intravascular (ICD-10-PCS; 2024-06-17)
PROC: B211YZZ Fluoroscopy of Multiple Coronary Arteries using Other Contrast (ICD-10-PCS; 2024-06-17)
PROC: B213YZZ Fluoroscopy of Multiple Coronary Artery Bypass Grafts using Other Contrast (ICD-10-PCS; 2024-06-17)
DX: I21.19 ST elevation (STEMI) myocardial infarction involving other coronary artery of inferior wall (principal); I25.10 Atherosclerotic heart disease of native coronary artery without angina pectoris; I10 Essential (primary) hypertension; F17.210 Nicotine dependence, cigarettes, uncomplicated; E78.00 Pure hypercholesterolemia, unspecified; I25.2 Old myocardial infarction; Z91.148 Patient's other noncompliance with medication regimen for other reason; Z82.49 Family history of ischemic heart disease and other diseases of the circulatory system; Z79.82 Long term (current) use of aspirin; Z95.5 Presence of coronary angioplasty implant and graft
CPT/HCPCS: 80048; 80053; 80061; 83036; 83735; 84484; 85025; 85027; 85610; 85730; 86850; 86900; 86901; 92978; 93005; 93306; 93459; 99152; 99153; 99285; 99406; C1725; C1753; C1760; C1769; C1874; C1887; C1894; C9606; Q9967